=== PATIENT | female | born 1980 | race American Indian/Alaskan Native ===

== ENCOUNTER 2017-10-18 12:51 | Emergency (ER) | payer MEDICAID ==
[2017-10-18 13:04] VITALS: BMI 34.4
[2017-10-18] MEDS ORDERED: Oxycodone/Acetaminophen 5/325 mg Tab PO STA (13:27)
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
[2017-10-18 15:08] VITALS: BP 135/66; PULSE 104; RESP 20; TEMP 98.3; O2SAT 98
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
== END 2017-10-18 16:17 | disposition home or self-care (01) ==
LOC: ED 12:51
DX: S62.617A Displaced fracture of proximal phalanx of left little finger, initial encounter for closed fracture (principal); Y04.0XXA Assault by unarmed brawl or fight, initial encounter; Y92.009 Unspecified place in unspecified non-institutional (private) residence as the place of occurrence of the external cause